=== PATIENT | male | born 1985 | race Caucasian/White ===

== ENCOUNTER → 2018-05-13 | Outpatient (CLI) | payer BC ==
[2018-05-13 18:45] LABS: BASOPHILS % (AUTO) 0 % (0-10); EOSINOPHILS # (AUTO) 0.3 10^3/uL (0.0-0.3); EOSINOPHILS % (AUTO) 3 % (0-10); HEMATOCRIT 43 % (40-54); LYMPHOCYTES # (AUTO) 2.4 X 10^3 (1.0-4.0); LYMPHOCYTES % (AUTO) 21 % (12-44); MEAN CORPUSCULAR HEMOGLOBIN 29 PG (25-34); MEAN CORPUSCULAR HGB CONC 35 G/DL (32-36); MEAN CORPUSCULAR VOLUME 84 FL (80-99); MEAN PLATELET VOLUME 9.7 FL (7.4-10.4); MONOCYTES # (AUTO) 1.1 X 10^3 (0.0-1.0); MONOCYTES % (AUTO) 10 % (0-12); NEUTROPHILS # (AUTO) 7.6 X 10^3 (1.8-7.8); NEUTROPHILS % (AUTO) 67 % (42-75); PLATELET COUNT 274 10^3/uL (130-400); RED CELL DISTRIBUTION WIDTH 14.2 % (10.0-14.5); WHITE BLOOD COUNT 11.4 10^3/uL (4.3-11.0)
[2018-05-13 19:09] LABS: ALANINE AMINOTRANSFERASE 209 U/L (0-55); ALBUMIN 4.8 GM/DL (3.2-4.5); ALKALINE PHOSPHATASE 53 U/L (40-136); BILIRUBIN,TOTAL 0.7 MG/DL (0.1-1.0); BUN/CREATININE RATIO 10; CALCIUM 9.7 MG/DL (8.5-10.1); CARBON DIOXIDE 24 MMOL/L (21-32); CHLORIDE 105 MMOL/L (98-107); CREATININE SERUM 1.15 MG/DL (0.60-1.30); GFR ESTIMATED > 60; GLUCOSE 88 MG/DL (70-105); POTASSIUM 4.1 MMOL/L (3.6-5.0); SODIUM 140 MMOL/L (135-145); URIC ACID 9.5 MG/DL (2.6-7.2)
== END ==
LOC: LAB 18:27
PROVIDERS: ATTEND Nurse Practitioner Family
DX: M25.572 Pain in left ankle and joints of left foot (principal); M25.472 Effusion, left ankle; Z87.39 Personal history of other diseases of the musculoskeletal system and connective tissue
CPT/HCPCS: 36415; 80053; 84550; 85025; 86141

== ENCOUNTER → 2018-05-30 | Outpatient (CLI) | payer BC ==
[~2018-05-30] MED LIST: CATHETER FLUSH 10 ML SYR IV PRN
--- NOTE | 2018-05-30 14:19 | Diagnostic Imaging Report ---
INDICATION: Elevated liver enzymes. TECHNIQUE: The patient was administered 5.4 mCi of technetium 99m Choletec intravenously and imaging over the abdomen was performed. Next, the patient ingested 8 ounces of Ensure and imaging of the abdomen and a gallbladder ejection fraction were performed. FINDINGS: There is homogeneous uptake of activity throughout the liver with prompt excretion of activity into the common duct. Normal passage of activity into the small bowel is seen. There is also passage of activity into the gallbladder. The gallbladder ejection fraction is slightly low at 30%. Normal values are 30% or greater. IMPRESSION: 1. No evidence of cystic duct or common bile duct obstruction. 2. Slightly low gallbladder ejection fraction of 30%. Dictated by: Dictated on workstation # [id number]
== END ==
LOC: CARD 09:50
PROVIDERS: ATTEND Family Medicine
DX: R94.5 Abnormal results of liver function studies (principal); R74.8 Abnormal levels of other serum enzymes; R74.0 Nonspecific elevation of levels of transaminase and lactic acid dehydrogenase [LDH]
CPT/HCPCS: 78227

== ENCOUNTER 2018-11-11 13:00 | Outpatient (CLI) | payer BC ==
[~2018-11-11] VITALS: Ht 165.1 cm; Wt 98.0 kg
[2018-11-11] MEDS ORDERED: ALLO100T PO (15:54)
[2018-11-11] MEDS ORDERED: ESOM20CA PO (15:54)
== END 2018-11-11 15:59 | disposition home or self-care (01) ==
LOC: PREOP 13:00
PROVIDERS: ATTEND Surgery
DX: Z01.818 Encounter for other preprocedural examination (principal)

== ENCOUNTER 2018-11-15 11:48 | Day surgery (SDC) | payer BC ==
[~2018-11-15] VITALS: Ht 165.1 cm; Wt 98.1 kg
[~2018-11-15 11:48] MED LIST changes: +ALLO100T PO; -CATHETER FLUSH 10 ML SYR IV PRN; +ESOM20CA PO
[2018-11-15 11:58] VITALS: BP 125/83
[2018-11-15] MEDS ORDERED: ceFAZolin 2 GM IV Premixed 50 ML IV ONE (12:00)
[2018-11-15 12:29] LABS: BASOPHILS % (AUTO) 0 % (0-10); EOSINOPHILS # (AUTO) 0.3 10^3/uL (0.0-0.3); EOSINOPHILS % (AUTO) 4 % (0-10); HEMATOCRIT 44 % (40-54); HEMOGLOBIN 15.2 G/DL (13.3-17.7); LYMPHOCYTES # (AUTO) 2.5 X 10^3 (1.0-4.0); LYMPHOCYTES % (AUTO) 33 % (12-44); MEAN CORPUSCULAR HEMOGLOBIN 29 PG (25-34); MEAN CORPUSCULAR HGB CONC 35 G/DL (32-36); MEAN CORPUSCULAR VOLUME 83 FL (80-99); MEAN PLATELET VOLUME 9.5 FL (7.4-10.4); MONOCYTES # (AUTO) 0.6 X 10^3 (0.0-1.0); MONOCYTES % (AUTO) 8 % (0-12); NEUTROPHILS # (AUTO) 4.2 X 10^3 (1.8-7.8); NEUTROPHILS % (AUTO) 55 % (42-75); PLATELET COUNT 289 10^3/uL (130-400); RED BLOOD COUNT 5.32 10^6/uL (4.35-5.85); RED CELL DISTRIBUTION WIDTH 13.9 % (10.0-14.5); WHITE BLOOD COUNT 7.6 10^3/uL (4.3-11.0)
[2018-11-15] MEDS: LACTATED RINGERS 1,000 ML IV PRN ×2 (12:45→14:55)
[2018-11-15] MEDS ORDERED: ROCURONIUM 10 MG/ML 5 ML SYRINGE IV ONE (13:28)
[2018-11-15] MEDS ORDERED: LIDOCAINE PF 2% 5 ML (XYLOCAINE) VIAL ONE (13:28)
[2018-11-15] MEDS ORDERED: PROPOFOL INJECTION 50 ML IV ONE ×2 (13:28→14:28)
[2018-11-15] MEDS ORDERED: ONDANSETRON 4 MG/2 ML (SDV) Z0FRAN ONE (13:28)
[2018-11-15] MEDS ORDERED: proPOfol 200 MG/20 ML (DIPRIVAN) VIAL IV ONE ×2 (13:28→15:13)
[2018-11-15] MEDS ORDERED: fentaNYL INJECTION 100 MCG/2 ML AMP ONE ×2 (13:34→14:24)
[2018-11-15] MEDS ORDERED: MIDAZOLAM 2 MG/2 ML (VERSED) VIAL ONE (13:34)
[2018-11-15] MEDS ORDERED: BUP/EPI 0.5% 1:200,000 (SENSORCAINE) 30 ML VIAL ONE (13:46)
[2018-11-15] MEDS ORDERED: KETOROLAC 30 MG/ML VIAL ONE (15:14)
[2018-11-15] MEDS ORDERED: NEOSTIGMINE 1 MG/ML 5 ML SYRINGE ONE (15:19)
[2018-11-15] MEDS ORDERED: GLYCOPYRROLATE 0.2 MG/ML (ROBINUL) 2 ML VIAL ONE (15:19)
--- NOTE | 2018-11-15 15:32 | Progress Note-Pre Operative ---
Pre-Operative Progress Note H&P Reviewed The H&P was reviewed, patient examined and no changes noted. Date Seen by Provider: Nov 15, 2018 Time Seen by Provider: 13:00 Date H&P Reviewed: Nov 15, 2018 Time H&P Reviewed: 13:00 Pre-Operative Diagnosis: chronic acalculous cholecystitis, diarrhea ERNESTINA RICARDO MD Nov 15, 2018 15:32
--- NOTE | 2018-11-15 15:34 | Progress Note-Post Operative ---
Post-Operative Progess Note Surgeon (s)/Pharmaceutical Process Engineer (s) Surgeon ERNESTINA RICARDO MD Pharmaceutical Process Engineer: meredith canales [employer]IDENT[employer] Pre-Operative Diagnosis chronic acalculous cholecystitis, diarrhea Post-Operative Diagnosis chronic acalculous cholecystitis, normal colon and rectum. Procedure & Operative Findings Date of Procedure 11/15/18 Procedure Performed/Findings laparoscopic cholecystectomy. colonoscopy. Anesthesia Type GET Estimated Blood Loss Estimated blood loss (mL): minimal Specimens/Packing Specimens Removed gallbladder ERNESTINA RICARDO MD Nov 15, 2018 15:34
[2018-11-15] MEDS ORDERED: HYDROmorphone 2 MG/ML VIAL (DILAUDID) ONE (15:35)
[2018-11-15] MEDS ORDERED: HYDR-34 PO (15:36)
--- NOTE | 2018-11-15 15:37 | Discharge Inst-Surgical ---
D/C Lap Instructions-[place] New, Converted, or Re-Newed RX: RX on Chart Follow Up Appt in 2 weeks Activity as tolerated No driving for 24 hours No driving while on pain medications Incentive Spirometry use every 2 hours while awake Regular Diet Symptoms to Report: Fever over 101 degree F, Nausea/Vomiting Infection Signs and Symptoms to report: Increased redness, Foul odor of wound, Increased drainage Bathing instructions: May shower Operative Area Clean/Dry; Keep incision clean/dry If any problems/questions: Contact your physician or go to Emergency Room ERNESTINA RICARDO MD Nov 15, 2018 15:37
[2018-11-15] MEDS ORDERED: ONDANSETRON 4 MG/2 ML (SDV) Z0FRAN IVP PRN ×2 (15:45)
[2018-11-15] MEDS ORDERED: HYDROmorphone 2 MG/ML VIAL (DILAUDID) IV ONE (15:45)
[2018-11-15] MEDS ORDERED: HYDROcodone/APAP 5 MG/325 MG (LORTAB) TAB PO ONE (15:45)
[2018-11-15] MEDS ORDERED: morphine INJ 10 MG/ML 1ML (SYR OR VIAL) IVP PRN (15:45)
[2018-11-15] MEDS ORDERED: ACETAMINOPHEN 325 MG TABLET PO PRN (15:45)
--- NOTE | 2018-11-15 16:06 | Anesthesia-General Post-Op ---
General Patient Condition Mental Status/LOC: Same as Preop Cardiovascular: Satisfactory Nausea/Vomiting: Absent Respiratory: Satisfactory Pain: Controlled Complications: Absent Post Op Complications Complications None Follow Up Care/Instructions Patient Instructions None needed. Anesthesia/Patient Condition Patient Condition Patient is doing well, no complaints, stable vital signs, no apparent adverse anesthesia problems. No complications reported per nursing. TJ NICHOLS CRNA Nov 15, 2018 16:06
[2018-11-15 16:20] VITALS: BP 122/78
[2018-11-15 17:00] VITALS: BP 122/87
[2018-11-15 17:35] VITALS: BP 126/80
[2018-11-15 17:45] VITALS: BP 126/80
--- NOTE | 2018-11-16 04:08 | OPERATIVE REPORT ---
DATE OF SERVICE: 11/15/2018 ATTENDING PRIMARY CARE PHYSICIAN: Dr. Peterson. PREOPERATIVE DIAGNOSES: Symptomatic chronic acalculous cholecystitis, diarrhea. POSTOPERATIVE DIAGNOSIS: Symptomatic chronic acalculous cholecystitis, normal colon and rectum. PROCEDURES: Laparoscopic cholecystectomy, colonoscopy. SURGEON: Ernestina Kim MD PC INSTALLATION ENGINEER: Chris Greenfield APRN ANESTHESIA: General endotracheal. ESTIMATED BLOOD LOSS: Minimal. FINDINGS: Slightly dilated gallbladder with mild gallbladder wall thickening. There were no stones identified. No significant appearing hemorrhoids. The remainder of the rectum and colon were normal. There were no polyps, neoplasms or any mucosal inflammatory changes identified. DISPOSITION: The patient tolerated the procedure well. INDICATIONS: The patient is a 32-year-old male who has had issues with diarrhea as well as nausea and reflux. He was started on Nexium and states that his reflux and nausea have improved; however, the diarrhea persists. He reports that the diarrhea is bad enough. At times, he will notice some red blood per rectum as well. He also reports that he does have pain in the right upper abdominal quadrant usually after meals. An ultrasound was performed, which did not show any gallstones; however, HIDA scan was performed, which did show a low ejection fraction of 30% as well as severe reproduction of symptoms with pain as well as nausea upon administration of a Kinevac analogue. DESCRIPTION OF PROCEDURE: The patient was brought to the operating room, laid supine on the table. After adequate IV pain and sedating medications and general endotracheal intubation, the abdomen was prepped and draped in standard surgical fashion. A 0.5% Marcaine with epinephrine was then used to anesthetize the overlying skin in the left upper abdominal quadrant. A small transverse skin incision made using a 15 blade. An 0 silk suture was applied to the medial aspect of incision for retraction. The Veress needle inserted with a low opening pressure of 0 mmHg and the abdomen was then insufflated to 15 mmHg pressure. The Veress needle removed and a 5 mm Xcel trocar placed followed by a 5 mm 45-degree angle laparoscope visualizing the peritoneal cavity. A 4-quadrant abdominal exploration was performed. There was a mild gallbladder wall dilatation as well as a mild gallbladder wall thickening. What was visualized of the liver, small bowel, stomach and omentum appeared normal. Under direct visualization, we then proceeded to place a supraumbilical 10 mm port after the skin and peritoneal lining were anesthetized using 0.5% Marcaine with epinephrine and a transverse skin incision made using a 15 blade. In a similar manner, a right upper abdominal quadrant 5 mm port was placed. The patient was then placed in reverse Trendelenburg position as well as plane right side up, left side down. The fundus of the gallbladder was then retracted anteriorly and superiorly. The hepatoduodenal ligament was then dissected using blunt dissection as well as electrocautery on the hook instrument. The entire critical view of safety was identified including the triangle of Calot as well as the cystic duct and artery as the only two structures going into the gallbladder as well as the cystic plate behind the proximal gallbladder. A timeout was then taken and the cystic duct and artery were then clipped proximally, distally and cut with EndoShears. The gallbladder was then dissected off of the liver bed using electrocautery on the hook instrument with visualization of good hemostasis as well as no leaking ducts of Luschka. The gallbladder was removed through the 10 mm port site using an EndoCatch bag. The 10 mm port site fascia and peritoneum were then closed under direct visualization using a Tulio-Marlee device and an 0 Vicryl suture. The abdomen was desufflated and remaining ports removed. All skin incisions were closed using 4-0 Monocryl running subcuticular sutures and then covered with Dermabond. The patient tolerated this portion of procedure well. We will instruct him to do no heavy lifting or exertion for the first 2 weeks and then to slowly incorporate some lifting and exertion; however, wait six weeks total from the surgery date to incorporate heavy lifting and exertion. We also recommend starting a low fat diet and then a slowly increasing over time. Under the same anesthesia, we then proceeded with the colonoscopy portion of the procedure. Under the same anesthesia, the patient was placed in frog leg position. A digital rectal examination was performed, which did not reveal any significant hemorrhoids. Normal sphincter tone was felt and there were no palpable masses. Prostate gland was palpable and appeared normal. The endoscope was then intubated into the anus and rectum gently insufflated. The endoscope was then advanced to the valves of Moon of the rectum with no polyps or any neoplasms identified as well as no mucosal inflammatory changes. We then proceeded through the sigmoid colon where no diverticulosis identified. The endoscope was then advanced to the remainder of the descending, transverse and ascending colon to the cecum. These segments were normal. There were no polyps or any neoplasms as well as no mucosal inflammatory change to indicate any active colitis. The endoscope was then slowly withdrawn with taking a second look and suctioning of residual air with no additional findings. The patient tolerated the procedure well. We will recommend medical management with a high fiber diet with at least 30 grams of fiber per day as well as copious amounts of water daily to promote soft stools on a daily basis. The etiology of his diarrhea may be related to his gallbladder as well and after having his cholecystectomy and decreasing fatty foods, the diarrhea showed improved on its own. Job ID: [id number] DocumentID: [id number] Dictated Date: 11/15/2018 15:43:48 Torch Heater Date: 11/16/2018 04:07:55 Dictated By: ERNESTINA KIM MD
== END 2018-11-15 17:45 | disposition home or self-care (01) ==
LOC: SDC 11:48
PROVIDERS: ATTEND Surgery
DX: K81.1 Chronic cholecystitis (principal); R19.7 Diarrhea, unspecified; K21.9 Gastro-esophageal reflux disease without esophagitis; F17.210 Nicotine dependence, cigarettes, uncomplicated
CPT/HCPCS: 36415; 85025; 87081; 94664

== ENCOUNTER 2019-07-30 15:47 | Emergency (ER) | payer BC ==
[~2019-07-30] VITALS: Ht 165.1 cm; Wt 97.5 kg
[~2019-07-30 15:47] MED LIST changes: +HYDR-34 PO
--- NOTE | 2019-07-30 16:11 | ED Lower Extremity ---
General Chief Complaint: Lower Extremity Stated Complaint: L KNEE SWELLING Source: patient Exam Limitations: no limitations History of Present Illness Date Seen by Provider: Jul 30, 2019 Time Seen by Provider: 16:09 Initial Comments To ER with left knee swelling that was first noticed 3 days ago upon awakening. No fevers or chills. No redness. No known preceding injury. 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 Onset: just prior to arrival Severity: moderate Pain/Injury Location: left knee Method of Injury: unknown Modifying Factors: Worse With Movement Allergies and Home Medications Allergies Coded Allergies: No Known Drug Allergies (Unverified , 11/11/18) Home Medications Allopurinol Unknown Strength Tablet, 1 TAB PO BID, (Reported) Esomeprazole Magnesium Unknown Strength Capsule.dr, 2 EA PO DAILY, (Reported) Hydrocodone Bit/Acetaminophen 1 Ea Tablet, 1 EACH PO Q4H PRN for PAIN-MODERATE Prescribed by: ERNESTINA RICARDO on 11/15/18 1536 Patient Home Medication List Home Medication List Reviewed: Yes Review of Systems Constitutional: see HPI EENTM: see HPI Respiratory: no symptoms reported Cardiovascular: no symptoms reported Genitourinary: no symptoms reported Musculoskeletal: no symptoms reported Skin: no symptoms reported Psychiatric/Neurological: No Symptoms Reported Past Fknfqgq-Octwzt-Uldiru Hx Patient Social History Type Used: Cigarettes Recent Foreign Travel: No Contact w/Someone Who Travel: No Recent Hopitalizations: No Seasonal Allergies Seasonal Allergies: Yes Past Medical History Gastroesophageal Reflux, Gall Bladder Disease Gout Physical Exam Vital Signs Vital Signs - First Documented 07/30/19 15:47 Temp 97.5 Pulse 94 Resp 20 B/P (MAP) 148/102 (117) Pulse Ox 98 O2 Delivery Room Air Capillary Refill : Height, Weight, BMI Height: 5'5.00" Weight: 216lbs. 4.0oz. [id number]; 36.0 BMI Method: General Appearance: WD/WN, no apparent distress HEENT: PERRL/EOMI, normal ENT inspection Respiratory: no respiratory distress, no accessory muscle use Hips: bilateral hip non-tender, bilateral hip normal inspection, bilateral hip normal range of motion Legs: bilateral leg non-tender, bilateral leg normal inspection, bilateral leg normal range of motion Knees: left knee pain, left knee soft tissue tenderness, left knee swelling, left knee other (there is some edema of the knee with loss of normal landmarks as compared to the other knee. Questionable effusion no erythema) Ankles: bilateral ankle non-tender, bilateral ankle normal inspection, bilateral ankle normal range of motion Feet: bilateral foot non-tender, bilateral foot normal inspection, bilateral foot normal range of motion Neurologic/Psychiatric: alert, normal mood/affect, oriented x 3 Skin: normal color, warm/dry Procedures/Interventions Additional Procedures: Arthrocentesis Aspirating Progress Area once a meter superior N1 semi-lateral to the superior and lateral border of the patella on the left was identified, cleansed with Betadine swabs which was allowed to dry, anesthetized with 2 mL of lidocaine without epinephrine 1%. A larger 18-gauge 1/2 inch needle was inserted, 2 mL of synovial fluid was aspirated which is clear yellow. Unable to aspirate any more than this. Progress/Results/Core Measures Results/Orders Lab Results Laboratory Tests Test 07/30/19 16:50 Range/Units Body Fluid Source SYNOVIAL Body Fluid Color YELLOW Body Fluid Appearance MOD CLDY Body Fluid WBC 2 /uL Body Fluid RBC 1400 /uL Body Fluid Polynuclear WBCs % Body Fluid Mononuclear WBCs % Body Fluid Lymphocytes % Body Fluid Other Cells % Body Fluid Crystals NOT SEEN My Orders Orders - KRISTAL ROY APRN Knee, Left, 3 Views (07/30/19 16:05) Body Fluid Cell Count (07/30/19 16:05) Crystals,Body Fluid (07/30/19 16:05) Body Fluid Culture (07/30/19 16:05) Lidocaine 1% Inj 20 Ml (Xylocaine 1% Inj (07/30/19 16:15) Medications Given in ED Current Medications Medications Dose Ordered Sig/Eloisa Route Start Time Stop Time Status Last Admin Dose Admin Lidocaine HCl 20 ml ONCE ONCE INJ 07/30/19 16:15 07/30/19 16:16 DC 07/30/19 16:47 20 ML Vital Signs/I&O 07/30/19 15:47 Temp 97.5 Pulse 94 Resp 20 B/P (MAP) 148/102 (117) Pulse Ox 98 O2 Delivery Room Air Departure Communication (Admissions) Most of the pain is from the superior aspect midline patella. The synovial fluid has a normal appearance by microscopy. Suspect a quadriceps tendinitis Impression Primary Impression: Quadriceps tendinitis Disposition: 01 HOME, SELF-CARE Condition: Stable Departure-Patient Inst. Decision time for Depature: 17:42 Referrals: NO,LOCAL PHYSICIAN (PCP/Family) Primary Care Physician Patient Instructions: Tendonitis (DC) Add. Discharge Instructions: 1. Ice pack to the area 2. Steroids as directed 3. Return to ER for any concerns. Follow-up with your doctor later this week. All discharge instructions reviewed with patient and/or family. Voiced understanding. Scripts Prednisone (Prednisone) 20 Mg Tab 40 MG PO DAILY, #8 TAB 0 Refills Prov: KRISTAL ROY APRN 07/30/19 KRISTAL ROY APRN Jul 30, 2019 16:11
[2019-07-30] MEDS ORDERED: LIDOCAINE 1% INJ 20 ML 20 ML VIAL INJ ONE (16:15)
--- NOTE | 2019-07-30 16:52 | Diagnostic Imaging Report ---
INDICATION: Pain and swelling. EXAMINATION: Three views of the left knee were obtained. FINDINGS: The alignment is normal. There is no fracture or dislocation. Soft tissues are unremarkable. IMPRESSION: No focal abnormality in the left knee. Dictated by: Dictated on workstation # [id number]
[2019-07-30 17:35] LABS: BODY FLUID SOURCE SYNOVIAL
[2019-07-30 17:36] LABS: BODY FLUID APPEARENCE MOD CLDY; BODY FLUID COLOR YELLOW; BODY FLUID RBC COUNT 1400 /uL; BODY FLUID WBC TOTAL COUNT 2 /uL
[2019-07-30] MEDS ORDERED: PRD20T PO (17:43)
[2019-07-30 17:50] VITALS: BP 160/99
== END 2019-07-30 17:50 | disposition home or self-care (01) ==
LOC: EDUNIT# 15:47 → ER 15:48
DX: M76.52 Patellar tendinitis, left knee (principal); K21.9 Gastro-esophageal reflux disease without esophagitis
CPT/HCPCS: 73562; 87070; 87205; 89051; 89060; 99284

== ENCOUNTER 2021-03-29 17:17 | Emergency (ER) | payer BC ==
[~2021-03-29] VITALS: Ht 165.1 cm; Wt 90.7 kg
[~2021-03-29 17:17] MED LIST changes: +PRD20T PO
[2021-03-29 18:01] VITALS: BP 149/92
--- NOTE | 2021-03-29 18:09 | ED Lower Extremity ---
General Chief Complaint: Lower Extremity Stated Complaint: RIGHT ANKLE INJURY Source: patient Exam Limitations: no limitations History of Present Illness Date Seen by Provider: March 29, 2021 Time Seen by Provider: 18:08 Initial Comments To ER with right lateral and medial ankle pain and swelling. He rolled his ankle on but had minimal pain at the time. He has had progressive pain since then. Onset: just prior to arrival Severity: moderate Pain/Injury Location: right ankle Method of Injury: fell Modifying Factors: Worse With Movement Allergies and Home Medications Allergies Coded Allergies: No Known Drug Allergies (Unverified , 11/11/18) Home Medications Allopurinol Unknown Strength Tablet, 1 TAB PO BID, (Reported) Esomeprazole Magnesium Unknown Strength Capsule.dr, 2 EA PO DAILY, (Reported) Hydrocodone Bit/Acetaminophen 1 Ea Tablet, 1 EACH PO Q4H PRN for PAIN-MODERATE Prescribed by: ERNESTINA RICARDO on 11/15/18 1536 Prednisone 20 Mg Tab, 40 MG PO DAILY Prescribed by: KRISTAL ROY on 07/30/19 1743 Patient Home Medication List Home Medication List Reviewed: Yes Review of Systems Constitutional: see HPI EENTM: see HPI Respiratory: no symptoms reported Cardiovascular: no symptoms reported Genitourinary: no symptoms reported Musculoskeletal: no symptoms reported Skin: no symptoms reported Psychiatric/Neurological: No Symptoms Reported Past Bxxwhfl-Vyhtpb-Qzicbn Hx Patient Social History Alcohol Use: Occasionally Uses Smoking Status: Current Everyday Smoker Type Used: Cigarettes Recent Hopitalizations: No Immunizations Up To Date Tetanus Booster (TDap): Less than 5yrs PED Vaccines UTD: Yes Seasonal Allergies Seasonal Allergies: Yes Past Medical History Surgeries: Yes (R ACL REPAIR) Respiratory: No Cardiac: No Neurological: No Genitourinary: No Gastrointestinal: Yes (BLOOD IN STOOLS) Gastroesophageal Reflux, Gall Bladder Disease Musculoskeletal: Yes Gout Endocrine: No HEENT: No Cancer: No Psychosocial: No Integumentary: No Blood Disorders: No Physical Exam Vital Signs Vital Signs - First Documented 03/29/21 18:01 Pulse 85 Resp 16 B/P (MAP) 149/92 (111) Pulse Ox 97 O2 Delivery Room Air Capillary Refill : Height, Weight, BMI Height: 5'5.00" Weight: 215lbs. 4.0oz. 97.647503jg; 36.0 BMI Method:Stated General Appearance: WD/WN, no apparent distress HEENT: PERRL/EOMI, normal ENT inspection Respiratory: no respiratory distress, no accessory muscle use Gastrointestinal: normal bowel sounds, non tender Hips: bilateral hip non-tender, bilateral hip normal inspection, bilateral hip normal range of motion Legs: bilateral leg non-tender, bilateral leg normal inspection, bilateral leg normal range of motion Knees: bilateral knee non-tender, bilateral knee normal inspection, bilateral knee normal range of motion Ankles: right ankle pain, right ankle soft tissue tenderness, right ankle swelling, right ankle other (There is swelling to the lateral and medial malleolus there are some bruising to the medial malleolus) Feet: bilateral foot non-tender, bilateral foot normal inspection Neurologic/Psychiatric: alert, normal mood/affect, oriented x 3 Skin: normal color, warm/dry Progress/Results/Core Measures Results/Orders My Orders Orders - KRISTAL ROY APRN Ankle, Right, 3 Views (03/29/21 18:08) Vital Signs/I&O 03/29/21 18:01 Pulse 85 Resp 16 B/P (MAP) 149/92 (111) Pulse Ox 97 O2 Delivery Room Air Diagnostic Imaging Diagonstic Imaging: Xray Comments NAME: PATRICK SEPULVEDA MED REC#: [id number] PT STATUS: REG ER : 1985 PHYSICIAN: KRISTAL ROY APRN ADMIT DATE: 03/29/21/ER Draft Date of Exam:03/29/21 ANKLE, RIGHT, 3 VIEWS INDICATION: Right ankle pain. EXAMINATION: AP, oblique and lateral views of the right ankle were obtained. FINDINGS: There is soft tissue swelling. There is no acute fracture or acute bony abnormality. There is no dislocation. IMPRESSION: Soft tissue swelling with no acute bony abnormality of the right ankle. Dictated on workstation # [id number] Dict: 03/29/21 1836 Trans: 03/29/[address] [facility] [id number] Interpreted by: ELAINE SORENSEN MD Electronically signed by: Departure Impression Primary Impression: Ankle sprain Disposition: HOME, SELF-CARE Condition: Stable Departure-Patient Inst. Decision time for Depature: 18:47 Referrals: MANDY ROCHE MD (PCP/Family) Primary Care Physician Patient Instructions: Ankle Sprain ED Add. Discharge Instructions: 1. Return to ER for any concerns. Tylenol and ibuprofen for pain control. Wear the splint for the next week or so. All discharge instructions reviewed with patient and/or family. Voiced understanding. KRISTAL ROY APRN March 29, 2021 18:09
--- NOTE | 2021-03-29 18:41 | Diagnostic Imaging Report ---
INDICATION: Right ankle pain. EXAMINATION: AP, oblique and lateral views of the right ankle were obtained. FINDINGS: There is soft tissue swelling. There is no acute fracture or acute bony abnormality. There is no dislocation. IMPRESSION: Soft tissue swelling with no acute bony abnormality of the right ankle. Dictated by: Dictated on workstation # [id number]
== END 2021-03-29 19:10 | disposition home or self-care (01) ==
LOC: EDUNIT# 17:17 → ER 17:21
DX: S93.401A Sprain of unspecified ligament of right ankle, initial encounter (principal); M10.9 Gout, unspecified; K21.9 Gastro-esophageal reflux disease without esophagitis; F17.210 Nicotine dependence, cigarettes, uncomplicated; Z79.52 Long term (current) use of systemic steroids; Z79.899 Other long term (current) drug therapy; X50.0XXA Overexertion from strenuous movement or load, initial encounter
CPT/HCPCS: 73610; 99283; L4350